=== PATIENT | female | born 1950 | race Caucasian/White ===

== ENCOUNTER → 2020-07-18 | Outpatient (CLI) | payer OTHER | END | disposition home or self-care (01) | LOC: COVID19 14:12 | PROVIDERS: ATTEND Student in an Organized Health Care Education/Training Program | DX: Z20.828 Contact with and (suspected) exposure to other viral communicable diseases (principal) ==

== ENCOUNTER 2020-10-05 12:05 | Inpatient (IN) | payer OTHER ==
[~2020-10-05] VITALS: Ht 157.4 cm; Wt 107.5 kg
[2020-10-05 12:18] VITALS: BP 123/65
[2020-10-05 12:55] LABS: BASO # 0.1 10*3/uL (0.0-0.1); EOS # 0.5 10*3/uL (0.0-0.4); EOS % 6.7 % (1.0-4.0); HEMATOCRIT 45.6 % (37.0-47.0); LYMPH # 2.1 10*3/uL (1.3-4.4); LYMPH % 27.1 % (27.0-41.0); MEAN CORPUSCULAR HGB 32.7 pg (27.0-31.0); MONO % 12.4 % (3.0-9.0); NEUT # 4.2 10*3/uL (2.3-7.9); NEUT % 52.4 % (47.0-73.0); PLATELET COUNT AUTOMATED 423 10*3/uL (130-400); RED BLOOD COUNT 4.47 10*6/uL (4.10-5.10); RED CELL DISTRI WIDTH 12.3 % (0-14.5); WHITE BLOOD COUNT 7.9 10*3/uL (4.8-10.8)
[2020-10-05 13:13] LABS: ALBUMIN 3.2 gm/dl (3.1-4.5); ALKALINE PHOSPHATASE 152 U/L (45-117); BUN 22 mg/dl (7-24); CHLORIDE 105 mmol/L (98-107); CREATININE 1.47 mg/dL (0.55-1.02); POTASSIUM 3.9 mmol/L (3.5-5.1); SGOT/AST 17 IU/L (3-35); SGPT/ALT 14 U/L (12-78); SODIUM 134 mmol/L (136-145); TOTAL PROTEIN 7.6 gm/dL (6.4-8.2)
[2020-10-05 13:14] LABS: TROPONIN I < 0.015 ng/ml (<0.045)
[2020-10-05] MEDS ORDERED: FLUDROCORTISON0.1 MG PO (13:27)
[2020-10-05] MEDS ORDERED: SERTRALINE HYDR50 MG PO (13:28)
[2020-10-05] MEDS ORDERED: LEVOTHYROXINE125 MCG PO (13:28)
[2020-10-05] MEDS ORDERED: TRAMADOL HCL50 MG PO (13:29)
[2020-10-05 14:49] VITALS: BP 130/70
[2020-10-05 15:10] VITALS: BP 100/74
[2020-10-05] MEDS ORDERED: LEXAPRO20 MG PO (15:43)
[2020-10-05] MEDS ORDERED: CORTEF10 M1 PO (15:44)
[2020-10-05] MEDS ORDERED: PRILOSEC20 M1 PO (20:01)
[2020-10-05 22:00] VITALS: BP 102/53
[2020-10-06 06:44] LABS: BASO # 0.1 10*3/uL (0.0-0.1); BASO % 0.7 % (0.0-1.0); EOS # 0.2 10*3/uL (0.0-0.4); EOS % 1.5 % (1.0-4.0); HEMATOCRIT 41.5 % (37.0-47.0); LYMPH # 1.9 10*3/uL (1.3-4.4); MEAN CELL VOLUME 101.5 fl (81.0-99.0); MEAN CORPUSCULAR HGB 33.3 pg (27.0-31.0); MEAN CORPUSCULAR HGB CONC 32.8 g/dl (33.0-37.0); MEAN PLATELET VOLUME 9.8 fl (9.6-12.3); MONO % 9.6 % (3.0-9.0); NEUT # 7.4 10*3/uL (2.3-7.9); NEUT % 69.9 % (47.0-73.0); PLATELET COUNT AUTOMATED 382 10*3/uL (130-400); RED BLOOD COUNT 4.09 10*6/uL (4.10-5.10); RED CELL DISTRI WIDTH 12.1 % (0-14.5); WHITE BLOOD COUNT 10.6 10*3/uL (4.8-10.8)
[2020-10-06 07:07] LABS: ALBUMIN 2.9 gm/dl (3.1-4.5); CREATININE 1.37 mg/dL (0.55-1.02); FREE T4 1.29 ng/dl (0.76-1.46); POTASSIUM 4.4 mmol/L (3.5-5.1); TOTAL PROTEIN 6.9 gm/dL (6.4-8.2)
[2020-10-06 07:11] LABS: THYROID STIM HORMONE (HS) 0.2 uIU/ml (0.358-4.75)
[2020-10-06 08:00] VITALS: BP 152/73
[2020-10-06 08:47] LABS: VITAMIN D, 25-HYDROXY 20.8 ng/mL (30-100)
[2020-10-06 12:00] VITALS: BP 122/55
[2020-10-06 16:00] VITALS: BP 100/50
[2020-10-06 20:00] VITALS: BP 116/62
[2020-10-07] VITALS: BP 110/48
[2020-10-07 06:13] LABS: BILIRUBIN Negative (Negative); BLOOD Negative (Negative); CLARITY Clear (Clear); COLOR Yellow (Yellow); GLUCOSE Negative (Negative); KETONE Negative (Negative); LEUKO ESTERASE 1+ (Negative); NITRITE Negative (Negative); UROBILINOGEN 0.2 E.U./dl (0.0-1.0)
[2020-10-07 07:08] LABS: CREATININE 1.31 mg/dL (0.55-1.02); POTASSIUM 4.4 mmol/L (3.5-5.1)
[2020-10-07 07:40] LABS: BACTERIA 4+; WBC 41-50 wbc/hpf (0-5)
[2020-10-07 08:00] VITALS: BP 128/72
[2020-10-07] MEDS ORDERED: VALACYCLOVIR H500 MG PO ×2 (11:25→11:33)
[2020-10-07] MEDS ORDERED: VALTREX500 MG PO (11:25)
[2020-10-07] MEDS ORDERED: HYDROCODONE-AC1 EAC1 PO (11:25)
== END 2020-10-07 13:53 | disposition home or self-care (01) | DRG 866 ==
LOC: ED 12:05 → EDHOLD 13:47 → 5E 14:26
PROVIDERS: Emergency Medicine; Family Medicine; Registered Nurse; ADMIT Internal Medicine; ATTEND Internal Medicine
DX: B02.7 Disseminated zoster (principal); E44.0 Moderate protein-calorie malnutrition; N17.9 Acute kidney failure, unspecified; E87.1 Hypo-osmolality and hyponatremia; E27.1 Primary adrenocortical insufficiency; F41.1 Generalized anxiety disorder; E03.9 Hypothyroidism, unspecified; R73.9 Hyperglycemia, unspecified; D47.3 Essential (hemorrhagic) thrombocythemia; D75.89 Other specified diseases of blood and blood-forming organs; E66.09 Other obesity due to excess calories; Z79.899 Other long term (current) drug therapy; Z90.49 Acquired absence of other specified parts of digestive tract; Z90.710 Acquired absence of both cervix and uterus; Z82.49 Family history of ischemic heart disease and other diseases of the circulatory system

== ENCOUNTER 2021-02-19 12:33 | Emergency (ER) | payer OTHER ==
[~2021-02-19] VITALS: Wt 99.8 kg
[~2021-02-19 12:33] MED LIST: CORTEF10 M1 PO; FLUDROCORTISON0.1 MG PO; HYDROCODONE-AC1 EAC1 PO; LEVOTHYROXINE125 MCG PO; LEXAPRO20 MG PO; PRILOSEC20 M1 PO; SERTRALINE HYDR50 MG PO; TRAMADOL HCL50 MG PO; VALACYCLOVIR H500 MG PO; VALTREX500 MG PO
== END 2021-02-19 13:45 | disposition left against medical advice (07) ==
LOC: ED 12:33
DX: M25.561 Pain in right knee (principal); Z53.21 Procedure and treatment not carried out due to patient leaving prior to being seen by health care provider; Z79.899 Other long term (current) drug therapy

== ENCOUNTER 2021-07-25 11:21 | Emergency (ER) | payer OTHER ==
[~2021-07-25] VITALS: Ht 160 cm; Wt 99.8 kg
== END 2021-07-25 13:02 | disposition left against medical advice (07) ==
LOC: ED 11:21
DX: Z53.21 Procedure and treatment not carried out due to patient leaving prior to being seen by health care provider (principal)

== ENCOUNTER 2021-10-15 17:28 | Inpatient (IN) | payer OTHER ==
[2021-10-15 17:48] VITALS: BP 87/26
[2021-10-15 19:57] VITALS: BP 124/61
[2021-10-15 20:20] LABS: BASO # 0.1 10*3/uL (0.0-0.1); BASO % 0.8 % (0.0-1.0); EOS # 0.2 10*3/uL (0.0-0.4); EOS % 1.9 % (1.0-4.0); HEMATOCRIT 46.1 % (37.0-47.0); LYMPH # 1.9 10*3/uL (1.3-4.4); LYMPH % 20.8 % (27.0-41.0); MEAN CELL VOLUME 98.3 fl (81.0-99.0); MEAN CORPUSCULAR HGB 32.6 pg (27.0-31.0); MEAN CORPUSCULAR HGB CONC 33.2 g/dl (33.0-37.0); MEAN PLATELET VOLUME 10.4 fl (9.6-12.3); MONO # 0.9 10*3/uL (0.1-1.0); MONO % 9.7 % (3.0-9.0); NEUT % 66.4 % (47.0-73.0); PLATELET COUNT AUTOMATED 314 10*3/uL (130-400); RED BLOOD COUNT 4.69 10*6/uL (4.10-5.10); RED CELL DISTRI WIDTH 11.9 % (0-14.5); WHITE BLOOD COUNT 9.1 10*3/uL (4.8-10.8)
[2021-10-15 20:35] LABS: CREATININE 1.84 mg/dL (0.55-1.02); POTASSIUM 4.9 mmol/L (3.5-5.1); TOTAL PROTEIN 7.1 gm/dL (6.4-8.2)
[2021-10-15 20:43] LABS: THYROID STIM HORMONE (HS) 0.008 uIU/ml (0.358-4.75)
[2021-10-15 23:00] VITALS: BP 128/65
[2021-10-16 00:17] VITALS: BP 127/58
[2021-10-16 01:59] VITALS: BP 122/69
[2021-10-16 03:20] VITALS: BP 125/70
[2021-10-16 05:53] VITALS: BP 142/52
[2021-10-16 06:38] LABS: BASO % 0.6 % (0.0-1.0); HEMATOCRIT 41.5 % (37.0-47.0); LYMPH # 1.2 10*3/uL (1.3-4.4); LYMPH % 17.1 % (27.0-41.0); MEAN CELL VOLUME 99.3 fl (81.0-99.0); MEAN CORPUSCULAR HGB 32.3 pg (27.0-31.0); MEAN CORPUSCULAR HGB CONC 32.5 g/dl (33.0-37.0); MEAN PLATELET VOLUME 10.6 fl (9.6-12.3); MONO # 0.4 10*3/uL (0.1-1.0); NEUT # 5.3 10*3/uL (2.3-7.9); NEUT % 76.2 % (47.0-73.0); PLATELET COUNT AUTOMATED 287 10*3/uL (130-400); RED BLOOD COUNT 4.18 10*6/uL (4.10-5.10); WHITE BLOOD COUNT 6.9 10*3/uL (4.8-10.8)
[2021-10-16 07:00] LABS: POTASSIUM 5.5 mmol/L (3.5-5.1)
[2021-10-16 07:15] LABS: CREATININE 1.48 mg/dL (0.55-1.02); FREE T4 1.57 ng/dl (0.76-1.46); THYROID STIM HORMONE (HS) 0.008 uIU/ml (0.358-4.75); TOTAL PROTEIN 6.4 gm/dL (6.4-8.2)
[2021-10-16 08:45] LABS: VITAMIN D, 25-HYDROXY 12.7 ng/mL (30-100)
== END 2021-10-16 07:49 | disposition left against medical advice (07) | DRG 643 ==
LOC: ED 17:28 → EDHOLD 23:04
PROVIDERS: Emergency Medicine; Internal Medicine; ADMIT Family Medicine; ATTEND Family Medicine
DX: E27.2 Addisonian crisis (principal); N17.0 Acute kidney failure with tubular necrosis; E87.1 Hypo-osmolality and hyponatremia; M25.50 Pain in unspecified joint; E83.42 Hypomagnesemia; E66.9 Obesity, unspecified; F41.1 Generalized anxiety disorder; R73.9 Hyperglycemia, unspecified; E86.0 Dehydration; E27.1 Primary adrenocortical insufficiency; Z90.49 Acquired absence of other specified parts of digestive tract; Z90.710 Acquired absence of both cervix and uterus; Z82.49 Family history of ischemic heart disease and other diseases of the circulatory system; Z79.899 Other long term (current) drug therapy; Z20.822 Contact with and (suspected) exposure to COVID-19

== ENCOUNTER 2023-05-06 09:27 | Emergency (ER) | payer OTHER ==
[~2023-05-06] VITALS: Wt 81.6 kg
[2023-05-06 10:34] LABS: BASO # 0.1 10*3/uL (0.0-0.1); EOS # 0.4 10*3/uL (0.0-0.4); EOS % 4.8 % (1.0-4.0); HEMATOCRIT 43.8 % (37.0-47.0); LYMPH # 1.5 10*3/uL (1.3-4.4); LYMPH % 18.9 % (27.0-41.0); MEAN CELL VOLUME 101.6 fl (81.0-99.0); MEAN CORPUSCULAR HGB 34.1 pg (27.0-31.0); MEAN CORPUSCULAR HGB CONC 33.6 g/dl (33.0-37.0); MEAN PLATELET VOLUME 9.9 fl (9.6-12.3); MONO # 0.6 10*3/uL (0.1-1.0); MONO % 7.6 % (3.0-9.0); NEUT # 5.3 10*3/uL (2.3-7.9); NEUT % 67.4 % (47.0-73.0); PLATELET COUNT AUTOMATED 332 10*3/uL (130-400); RED BLOOD COUNT 4.31 10*6/uL (4.10-5.10); RED CELL DISTRI WIDTH 12.1 % (0-14.5); WHITE BLOOD COUNT 7.9 10*3/uL (4.8-10.8)
[2023-05-06] MEDS ORDERED: FLUDROCORTISON0.1 MG PO (10:40)
[2023-05-06 10:45] LABS: ACT PARTIAL THROMBO TIME 29.5 SECONDS (20.0-32.1)
[2023-05-06 10:56] LABS: ALKALINE PHOSPHATASE 135 U/L (46-116); BUN 27 mg/dl (9-23); CHLORIDE 105 mmol/L (98-107); POTASSIUM 4.3 mmol/L (3.4-5.1); TOTAL PROTEIN 7.1 gm/dL (6.0-8.0)
[2023-05-06 10:58] LABS: SGPT/ALT < 7 U/L (5-49)
[2023-05-06] MEDS ORDERED: PERCOCET 5-3251 EACH PO (12:00)
== END 2023-05-06 12:15 | disposition home or self-care (01) ==
LOC: ED 09:27
PROVIDERS: Emergency Medicine
DX: S89.92XA Unspecified injury of left lower leg, initial encounter (principal); Z90.710 Acquired absence of both cervix and uterus; Z90.49 Acquired absence of other specified parts of digestive tract; W19.XXXA Unspecified fall, initial encounter; Y93.89 Activity, other specified; Y92.89 Other specified places as the place of occurrence of the external cause; Y99.8 Other external cause status

== ENCOUNTER 2023-11-28 15:06 | Emergency (ER) | payer OTHER ==
[~2023-11-28 15:06] MED LIST changes: +PERCOCET 5-3251 EACH PO
== END 2023-11-28 16:22 | disposition left against medical advice (07) ==
LOC: ED 15:06
DX: E27.2 Addisonian crisis (principal); Z53.21 Procedure and treatment not carried out due to patient leaving prior to being seen by health care provider